=== PATIENT | male | born 2000 | race Hispanic/Latino ===

== ENCOUNTER 2025-03-25 20:00 | Emergency (ER) | payer SELFPAY ==
--- OUTSIDE RECORDS SUMMARY | 2025-03-25 20:04 | XMS REPORT | Continuity of Care Document ---
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 5 days. If you develop any abnormal swelling, deformity or stitches falls out or breaks, or you develop any other cause for concern, please report back to the emergency department. You can take Tylenol and ibuprofen as needed for pain at [address] [facility] #:[id number] END OF REPORT [facility] 2023-06-23 20:15:00 Pt given printed and verbal discharge instructions regarding chest pain and chills Prescriptions provided Pt verbalized understanding of instructions, pt awake alert oriented, resp reg unlabored, skin w/d, color appropriate for race, moves all ext well,pt encouraged to follow up with pcp Advised to seek medical attention for new/prolonged/worsening of symptoms No adverse reaction to meds given in ER noted upon discharge PIV d'cd, dressing to site, catheter in tact. Awake, alert oriented, resp reg unlabored, skin w/d, pt leaving amb with steady gait, in no apparent distress Lombardo RN [facility] 2023-06-23 17:40:00 Patient states he does not have tonsils and refused the strep test. Edge RN [facility] 2023-06-23 17:01:18 Pt arrived via private car with c/o "chest pain when I breathe deep for 1 week, chills, headache and shivering". EKG preformed in Triage. Fortune RN [facility]
[2025-03-25 20:34] LABS: Absolute Lymphocytes (CBC) 3.6 K/uL (0.7-4.9); Hematocrit 41.2 % (39.6-49.0); Hemoglobin 13.9 g/dL (13.6-17.9); MCH 27.1 pg (27.0-35.0); MCHC 33.7 g/dL (32.0-36.0); MCV 80.4 fL (80-100); MPV 8.6 fL (7.6-11.3); Nucleated RBC Absolute Count 0.0 (0-0); Nucleated Red Blood Cells % 0.1 % (0-0); RBC Red Blood Cell Count 5.13 M/uL (4.33-5.43); White Blood Count 9.90 thou/uL (4.3-10.9)
[2025-03-25] MEDS ORDERED: FAMOTIDINE 20 MG/2 ML VIAL IV ONE (20:35)
[2025-03-25] MEDS ORDERED: MAGNES/ALUMIN/SIMET 30ML UCUP ONE (20:35)
--- NOTE | 2025-03-25 20:47 | RAD REPORT ---
Abdomen Exam Limited: 03/25/2025 8:40 PM CLINICAL HISTORY: ABD PAIN STUDY: Limited right upper quadrant ultrasound of abdomen. COMPARISON: None. FINDINGS: Liver: Hepatic steatosis. Bile ducts: No intrahepatic or extrahepatic biliary ductal dilatation. Common bile duct measures 3 mm. Gallbladder: Cholelithiasis. No gallbladder wall thickening. No sonographic Almaguer sign. No perichole cystic fluid. IMPRESSION: Cholelithiasis but without sonographic evidence of acute cholecystitis. No biliary ductal dilatation.
[2025-03-25 20:51] LABS: ALT/SGPT 37.0 U/L (16-61); AST/SGOT 20.0 U/L (15-37); Albumin 4.3 g/dL (3.4-5.0); Albumin/Globulin Ratio 1.3 (1.1-1.8); Alkaline Phosphatase 39.0 U/L (45-117); Anion Gap 10.4 mEq/L (5.0-15.0); BUN Blood Urea Nitrogen 25.0 mg/dL (7-18); Globulin 3.2 g/dL (2.3-3.5); Glucose Level 90.0 mg/dL (74-106); Lipase 48.0 U/L (13-75); Potassium 3.4 mEq/L (3.5-5.1)
--- NOTE | 2025-03-25 20:55 | ER ---
Nurse's Notes [facility] Name: Ayden Reeves Jr Age: 24 yrs Sex: Male : 2000 Arrival Date: 03/25/2025 Time: 20:00 Bed 6 Private MD: Diagnosis: Other cholelithiasis without obstruction;Upper abdominal pain, unspecified Presentation: 03/25 20:06 Chief complaint: Patient states: SHARP PAIN TO RT UPPER ABDOMEN, OCCASIONAL dd2 CONSTIPATION AND DIARRHEA FOR 1 1/2 MONTHS. REPORTS HE WAS HERE FOR SAME SYMPTOMS AND TOLD HE HAS GALLBLADDER ISSUE. PT DENIES VOMITING. Coronavirus screen: At this time, the client does not indicate any symptoms associated with coronavirus-19. Ebola Screen: No symptoms or risks identified at this time. Risk Assessment: Do you want to hurt yourself or someone else? Patient reports no desire to harm self or others. Onset of symptoms is unknown. 20:06 Method Of Arrival: Ambulatory dd2 20:06 Acuity: CONY 3 dd2 20:10 Initial Sepsis Screen: Does the patient meet any 2 criteria? No. Patient's initial dd2 sepsis screen is negative. Does the patient have a suspected source of infection? No. Patient's initial sepsis screen is negative. Triage Assessment: 20:10 General: Appears in no apparent distress. well groomed, well nourished, Behavior is dd2 calm, cooperative, appropriate for age. Pain: Complains of pain in right upper quadrant Pain currently is 8 out of 10 on a pain scale. Pain: Quality of pain is described as burning, sharp. GI: Reports upper abdominal pain, constipation, diarrhea. Historical: - Allergies: 20:10 No Known Allergies; dd2 - PMHx: 20:10 None; dd2 - PSHx: 20:10 None; dd2 - Immunization history:: Adult Immunizations up to date. - Infectious Disease History:: Denies. - Social history:: Smoking status: Reported history of juuling and/or vaping. Screenin:27 [facility] ED Fall Risk Assessment (Adult) History of falling in the last 3 months, al5 including since admission No falls in past 3 months (0 pts) Confusion or Disorientation No (0 pts) Intoxicated or Sedated No (0 pts) Impaired Gait No (0 pts) Mobility Assist Device Used No (0 pt) Altered Elimination No (0 pt) Score/Fall Risk Level 0 - 2 = Low Risk Oriented to surroundings, Maintained a safe environment, Hourly rounding (assess needs \T\ fall precautionary measures) done. Abuse screen: Denies threats or abuse. Denies injuries from another. Nutritional screening: No deficits noted. Tuberculosis screening: No symptoms or risk factors identified. Assessment: 20:28 General: Appears in no apparent distress. uncomfortable, Behavior is calm, cooperative. al5 Pain: Complains of pain in epigastric area and right upper quadrant Quality of pain is described as burning, sharp. Neuro: Level of Consciousness is awake, alert, obeys commands, Oriented to person, place, time, situation. Cardiovascular: Capillary refill < 3 seconds Patient's skin is warm and dry. Respiratory: Airway is patent Respiratory effort is even, unlabored, Respiratory pattern is regular, symmetrical. GI: Abdomen is flat, non-distended, Bowel sounds present X 4 quads. Abd is soft X 4 quads Abdomen is tender to palpation in epigastric area and right upper quadrant Reports upper abdominal pain, epigastric pain, nausea. : No signs and/or symptoms were reported regarding the genitourinary system. EENT: No signs and/or symptoms were reported regarding the EENT system. Derm: Skin is intact, is healthy with good turgor, Skin is pink, warm \T\ dry. normal. Musculoskeletal: Circulation, motion, and sensation intact. Range of motion: intact in all extremities. 21:01 Reassessment: Patient appears in no apparent distress at this time. Patient and/or al5 family updated on plan of care and expected duration. Pain level reassessed. Patient is alert, oriented x 3, equal unlabored respirations, skin warm/dry/pink. Patient states feeling better. Vital Signs: 20:10 BP 127 / 74; Pulse 71; Resp 16; Temp 98.2; Pulse Ox 100% ; Weight 81.65 kg; Height 5 dd2 ft. 10 in. ; Pain 8/10; 20:30 BP 138 / 77; Pulse 76; Resp 18; Temp 98(O); Pulse Ox 99% on R/A; Weight 81.65 kg; al5 Height 5 ft. 10 in. ; 20:45 BP 131 / 84; Pulse 67; Resp 16; Pulse Ox 100% on R/A; kb4 21:00 BP 128 / 87; Pulse 65; Resp 16; Pulse Ox 100% on R/A; kb4 20:30 Body Mass Index 25.83 (81.65 kg, 177.8 cm) al5 20:10 Pain Scale: Adult dd2 ED Course: 20:03 Patient arrived in ED. gm2 20:10 Triage completed. dd2 20:10 Arm band placed on left wrist. dd2 20:14 Paulie Monte DO is Attending Physician. tt7 20:26 Stacy Carranza RN is Primary Nurse. al5 20:27 Patient has correct armband on for positive identification. Bed in low position. Call al5 light in reach. Side rails up X 1. Provided Education on: plan of care. 20:27 No provider procedures requiring assistance completed. Inserted saline lock: 20 gauge al5 in right antecubital area, using aseptic technique. ,using aseptic technique. done by HORACE Cardenas Blood collected. Flushed with 10 mL NS. 20:42 Abdomen Limited US In Process Unspecified. EDMS 20:54 Rohit Tai MD is Referral Physician. tt7 21:00 IV discontinued, intact, bleeding controlled, No redness/swelling at site. Pressure al5 dressing applied. Administered Medications: 20:39 Drug: Famotidine IVP 20 mg IVP once; dilute with 10 mL 0.9% NaCl; give over 2 minutes kb4 Route: IVP; Site: right antecubital; 21:00 Follow up: Response: No adverse reaction; Pain is decreased al5 20:39 Drug: Alum-Mag Hydroxide-Simeth PO Suspension (200 mg-200 mg-20 mg/5 mL) 30 ml PO once kb4 Route: PO; 21:00 Follow up: Response: No adverse reaction; Pain is decreased al5 21:01 Drug: Dicyclomine PO 20 mg PO once Route: PO; al5 21:01 Follow up: Response: No adverse reaction; Medication administered at discharge. al5 Medication: 20:27 VIS not applicable for this client. al5 Outcome: 20:55 Discharge ordered by . tt7 21:01 Discharged to home ambulatory, with significant other, al5 21:01 Condition: good 21:01 Discharge instructions given to patient, Instructed on discharge instructions, follow up and referral plans. medication usage, Demonstrated understanding of instructions, follow-up care, medications, 21:07 Patient left the ED. kb4 Signatures: Dispatcher [employer] EDMS Tiarra Richards gm2 Stacy Carranza RN RN al5 CORNELIUS APARICIO RN RN dd2 Theresa Sanchez RN RN kb4 Paulie Monte, DO tt7
--- NOTE | 2025-03-25 20:55 | EDPHYS ---
Physician Documentation [facility] Name: Ayden Reeves Jr Age: 24 yrs Sex: Male : 2000 Arrival Date: 03/25/2025 Time: 20:00 Bed 6 Private MD: ELIESER Physician Paulie Monte Historical: - Allergies: 03/25 20:10 No Known Allergies; dd2 - PMHx: 20:10 None; dd2 - PSHx: 20:10 None; dd2 - Immunization history:: Adult Immunizations up to date. - Infectious Disease History:: Denies. - Social history:: Smoking status: Reported history of juuling and/or vaping. Vital Signs: 20:10 BP 127 / 74; Pulse 71; Resp 16; Temp 98.2; Pulse Ox 100% ; Weight 81.65 kg; Height 5 dd2 ft. 10 in. ; Pain 8/10; 20:30 BP 138 / 77; Pulse 76; Resp 18; Temp 98(O); Pulse Ox 99% on R/A; Weight 81.65 kg; al5 Height 5 ft. 10 in. ; 20:45 BP 131 / 84; Pulse 67; Resp 16; Pulse Ox 100% on R/A; kb4 21:00 BP 128 / 87; Pulse 65; Resp 16; Pulse Ox 100% on R/A; kb4 20:30 Body Mass Index 25.83 (81.65 kg, 177.8 cm) al5 20:10 Pain Scale: Adult dd2 MDM: 20:14 Medical Screening Exam initiated tt7 03/25 20:17 Order name: CBC with Diff; Complete Time: 20:53 tt7 03/25 20:17 Order name: CMP; Complete Time: 20:53 tt7 03/25 20:17 Order name: Lipase; Complete Time: 20:53 tt7 03/25 20:17 Order name: Abdomen Limited US; Complete Time: 20:53 tt7 03/25 20:17 Order name: IV Saline Lock; Complete Time: 20:29 tt7 03/25 20:17 Order name: Labs collected and sent; Complete Time: 20:29 tt7 Administered Medications: 20:39 Drug: Famotidine IVP 20 mg IVP once; dilute with 10 mL 0.9% NaCl; give over 2 minutes kb4 Route: IVP; Site: right antecubital; 21:00 Follow up: Response: No adverse reaction; Pain is decreased al5 20:39 Drug: Alum-Mag Hydroxide-Simeth PO Suspension (200 mg-200 mg-20 mg/5 mL) 30 ml PO once kb4 Route: PO; 21:00 Follow up: Response: No adverse reaction; Pain is decreased al5 21:01 Drug: Dicyclomine PO 20 mg PO once Route: PO; al5 21:01 Follow up: Response: No adverse reaction; Medication administered at discharge. al5 Disposition Summary: 03/25/25 20:55 Discharge Ordered Notes: Location: Home tt7 Problem: an acute exacerbation tt7 Symptoms: have improved tt7 Condition: Stable tt7 Diagnosis - Other cholelithiasis without obstruction tt7 - Upper abdominal pain, unspecified tt7 Followup: tt7 - With: Emergency Department - When: As needed - Reason: Followup: tt7 - With: Rohit Tai MD - When: 2 - 3 days - Reason: Discharge Instructions: - Discharge Summary Sheet tt7 - Cholelithiasis, [id number] tt7 Forms: - Medication Reconciliation Form tt7 - Antibiotic Education tt7 - Prescription Opioid Use tt7 - Patient Portal Instructions tt7 - Leadership Thank You Letter tt7 Prescriptions: - dicyclomine 20 mg Oral tablet - take 1 tablet ORAL route 3 times per day As needed; 20 tablet; Refills: 0, tt7 Product Selection Permitted Addendum: 03/29/2025 09:21 Addendum: 24-year-old male presents to the emergency department for sharp right upper t t7 quadrant pain that has been intermittent for the past 1 month, pain is usually worse after eating, he has associated nausea occasionally but no vomiting, he denies fever, he has no significant past medical history. Constitutional: denies fever Respiratory: denies SOB, cough Cardiovascular: denies chest pain, palpitations GI: Reports abdominal pain, nausea, denies vomiting Neuro: denies focal weakness Skin: denies rash Constitutional: vital signs reviewed, well appearing Head: normocephalic, atraumatic Eyes: no conjunctival injection, anicteric sclerae ENMT: mucus membranes moist Neck: trachea midline, no JVD, no meningismus Respiratory: normal respiratory effort, no accessory muscle use, lungs CTAB, no wheezing or rales Cardiovascular: Regular rate and rhythm, no murmurs, no rubs, no lower extremity edema Abdomen: soft, nondistended, mild right upper quadrant tenderness, no guarding or rebound, negative Almaguer's sign, no McBurney point tenderness MSK: normal ROM of extremities, no gross deformities Skin: warm, dry, intact, no rash Neuro: alert and oriented with appropriate mental status, normal speech, follows commands, no focal neurologic deficits Psych: appropriate mood and affect Standard abdominal pain workup ordered including right upper quadrant ultrasound, and most suspicious for cholelithiasis but will get ultrasound to rule out findings of cholecystitis, patient was given pain medications and reassess, significantly improved, right upper quadrant ultrasound shows cholelithiasis without evidence of cholecystitis, after completion of the patient's emergency department evaluation, I do not suspect a life-threatening or disabling process. Patient is medically stable and not in need of emergent medical intervention. I had a detailed discussion with the patient regarding the historical points, exam findings, emergency department evaluation, diagnostic results, and the discharge diagnosis. I instructed the patient on outpatient management of their condition. I discussed the need for outpatient follow-up with a primary care physician. I informed the patient on return precautions, including the need to return to the ED if symptoms do not improve, worsen, or if there are any questions or concerns that arise at home. The patient was discharged in stable condition . Co-signature as Attending Physician, Paulie Monte DO. Signatures: Dispatcher [employer] EDNM Stacy Carranza RN RN al5 CORNELIUS APARICIO RN RN dd2 Theresa Sanchez RN RN kb4 Paulie Monte DO DO tt7
[2025-03-25] MEDS ORDERED: DICYCLOMINE HCL 10 MG CAP ONE (20:59)
[2025-03-25 21:25] VITALS: TEMP 98
[2025-03-25 21:27] VITALS: O2SAT 100
[2025-03-25 21:28] VITALS: BP 128/87
== END 2025-03-25 21:07 | disposition home or self-care (01) ==
LOC: ER 20:00
DX: K80.80 Other cholelithiasis without obstruction (principal)
CPT/HCPCS: 36415; 76705; 80053; 83690; 85025; 96374; 99284